=== PATIENT | female | born 1960 | race Caucasian/White ===

== ENCOUNTER 2016-10-09 14:24 | Emergency (ER) | payer SELFPAY ==
[~2016-10-09] VITALS: Ht 149.9 cm; Wt 55.0 kg
[~2016-10-09 14:24] MED LIST: ATEN1TAB75 PO; TRAM50 PO; TRIX0.07 TOP
[2016-10-09 14:45] VITALS: BP 146/86; PULSE 67; RESP 16; TEMP 98.2; O2SAT 100
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
[2016-10-09 17:28] LABS: BLOOD, URINE NEG (NEG); GLUCOSE,URINE NEG (NEG); KETONE, URINE NEG (NEG); NITRITE,URINE NEG (NEG); PH, URINE 6.5 (5.0-8.5)
[2016-10-09 17:44] LABS: METHOD OF COLLECTION CLEAN CATCH; URINE COLOR YELLOW (YELLW/STRAW)
[2016-10-09 17:45] LABS: BACTERIA, URINE RARE /hpf; COMMENT (UR) CULT NOT INDICATED; CULTURE IF INDICATED CULT NOT INDICATED; SQUAMOUS EPITHELIAL CELL URINE >8 /hpf (0-5); WBC, URINE 0-2 /hpf (0-5)
[2016-10-09] MEDS ORDERED: TRAM50TA PO (17:56)
[2016-10-09] MEDS ORDERED: IBUP800T23 PO (17:59)
[2016-10-09] MEDS ORDERED: CYCL1TAB29 PO (17:59)
== END 2016-10-09 18:06 | disposition home or self-care (01) ==
LOC: PHED 14:24 → PHEFT 18:06
DX: M62.838 Other muscle spasm (principal); N32.89 Other specified disorders of bladder
CPT/HCPCS: 81001; 99283